=== PATIENT | male | born 1960 | race Caucasian/White ===

== ENCOUNTER 2017-05-17 17:21 | Emergency (ER) | payer OTHER ==
[2017-05-17] MEDS ORDERED: Hydromorphone 1 mg/ml Ampule IV ONE (17:33)
[2017-05-17] MEDS ORDERED: Adacel Vial IM ONE ×2 (17:33→17:46)
[2017-05-17] MEDS ORDERED: BENADRYL 50 MG/ML IV ONE (17:33)
[2017-05-17] MEDS ORDERED: BENADRYL 50 MG/ML ONE (17:45)
[2017-05-17] MEDS ORDERED: Hydromorphone 1 mg/ml Ampule ONE (17:45)
[2017-05-17] MEDS ORDERED: Sodium Chloride 0.9% 1000 ML 1,000 ML IV SCH (17:45)
[2017-05-17] MEDS ORDERED: Sodium Chloride 0.9% 1000 ML 1,000 ML ONE (17:46)
[2017-05-17 17:52] LABS: Mean Cell Volume 84.1 fl (78-100); Mean Corpuscular Hemoglobin 28.4 pg (26-32); Mean Platelet Volume 9.6 fl (6-9.5); Platelet Count 208 K/mm3 (150-450); Red Blood Count 4.97 M/mm3 (4.1-5.6); Red Cell Distribution Width 13.5 % (11.5-14.0); White Blood Count 8.9 K/mm3 (4.0-10.5)
--- NOTE | 2017-05-17 18:04 | ERPHSYRPT ---
- History of Present Illness Time Seen by Provider: 05/17/17 17:26 Source: patient Patient Subjective Stated Complaint: pt had horse fall over him while he was shoeing him. pt landed on left side, pt co pain to pelvic regin, pt stated he was able to get up and walk Triage Nursing Assessment: pt alert, states no loc. resp easy, chest clear, skin w/d pink, abd soft. pelis tender. states penis hurts but not trauma to penis. sips of water about 30 mins ago , eat about 0930 Physician History: CC: smashed by horse Hx: 56 y/o patient from [facility] here to shoe horses. He had a horse twist and fall. Kicked in back of head with no LOC. Some neck pain. No numbness. Pain radiates from low back to pelvis to his groin area. Not short of breath. No extremity pain. No N/V. Was able to stand but rather severe pain in the low back. Occurred: just prior to arrival Loss of Consciousness: no loss of consciousness Severity of Pain-Max: severe Severity of Pain-Current: severe Allergies/Adverse Reactions: codeine Allergy (Verified 05/17/17 17:39) Home Medications: No Reportable Medications [No Reported Medications] 05/17/17 [History] Hx Tetanus, Diphtheria Vaccination/Date Given: No Hx Influenza Vaccination/Date Given: No Hx Pneumococcal Vaccination/Date Given: No Immunizations Up to Date: Yes - Review of Systems Constitutional: No Symptoms Eyes: No Vision Changes Ears, Nose, & Throat: No Symptoms Respiratory: No Cough, No Dyspnea Cardiac: No Chest Pain Abdominal/Gastrointestinal: No Abdominal Pain, No Nausea, No Vomiting Musculoskeletal: Back Pain, Neck Pain, Joint Pain (pelvis and hips) Skin: No Rash Neurological: No Focal Weakness, No Headache, No Parasthesia All Other Systems: Reviewed and Negative - Past Medical History Pertinent Past Medical History: No Other Medical History: umbilical hernia - Past Surgical History Past Surgical History: No - Social History Smoking Status: Never smoker Exposure to second hand smoke: No Drug Use: none Patient Lives Alone: No Physical Exam - Nursing Vital Signs Nursing Vital Signs: Initial Vital Signs Temperature 97.2 F 05/17/17 17:36 Pulse Rate 72 05/17/17 17:36 Respiratory Rate 20 05/17/17 17:36 Blood Pressure 136/77 05/17/17 17:36 O2 Sat by Pulse Oximetry 99 05/17/17 17:36 Pain Scale Pain Intensity 4 - Eden Coma Score Best Eye Response (Eden): (4) open spontaneously Best Verbal Response (Eugenio): (5) oriented Best Motor Response (Eugenio): (6) obeys commands Eden Total: 15 - Physical Exam General Appearance: alert, other (uncomfortable appearing) Eye Exam: bilateral eye: PERRL, EOMI ENT Exam: airway nml Neck Exam: other (mild tenderness, c-collar placed on arrival) Respiratory/Chest Exam: normal breath sounds, No chest tenderness Cardiovascular Exam: regular rate/rhythm Gastrointestinal Exam: soft, No tenderness, No distention Genitalia Exam: normal genital exam Back Exam: normal inspection, vertebral tenderness (low back) Extremity Exam: normal inspection, other (no point tenderness of extremities) Neurologic Exam: alert, oriented x 3, cooperative, clay miller II-XII nml as tested, sensation nml, No motor deficits Skin Exam: warm, dry, No rash SpO2 Interpretation: normal SpO2: 99 Oxygen Delivery: Room Air Procedures - Limited Abd FAST Ultrasound Right Upper Quadrant Findings: No Free Fluid Left Upper Quadrant Findings: No Free Fluid Pelvis: no free fluid Progress: Transabdominal sonogram FAST exam per ERMD for trauma: No free fluid. No pericardial effusion. Good lung sliding bilateral. - Course Nursing assessment & vital signs reviewed: Yes - Radiology Exams pelvis X-ray Interpretation: Discussed w/ radiologist (no fracture per Dr Clarke) Ordered Tests: Active Orders 24 hr Category Date Time Status Ccu Nurse STAT Care 05/17/17 17:35 Active Cervical Collar Application STAT Care 05/17/17 17:33 Active Clean Catch Urine Specimen STAT Care 05/17/17 17:33 Active IV Insertion STAT Care 05/17/17 17:33 Active IV Insertion-2nd Peripheral STAT Care 05/17/17 17:33 Active NPO (ED) STAT Care 05/17/17 17:33 Active ABDOMEN AND PELVIS W CONTRAST [CT] Stat Exams 05/17/17 17:34 Taken CERVICAL SPINE WO CONTRAST [CT] Stat Exams 05/17/17 17:34 Taken CHEST 1 VIEW (PORTABLE) Stat Exams 05/17/17 17:36 Taken CHEST WITH CONTRAST [CT] Stat Exams 05/17/17 17:35 Taken HEAD WITHOUT CONTRAST [CT] Stat Exams 05/17/17 17:34 Taken PELVIS (1 OR 2 VIEWS) Stat Exams 05/17/17 17:36 Taken CBC W DIFF Stat Lab 05/17/17 17:47 Completed CK-Creatinine Phosphokinase Stat Lab 05/17/17 17:47 Completed CMP Stat Lab 05/17/17 17:47 Completed CULTURE,URINE Stat Lab 05/17/17 19:35 Received ETHYL ALCOHOL Stat Lab 05/17/17 17:47 Completed Manual Differential NC Stat Lab 05/17/17 17:47 Completed PROTIME WITH INR Stat Lab 05/17/17 17:47 Completed PTT Stat Lab 05/17/17 17:47 Completed UA W/ MICROSCOPIC Stat Lab 05/17/17 19:35 Completed Urine Triage Profile Stat Lab 05/17/17 19:30 Completed Medication Summary Generic Name Dose Route Start Last Admin Trade Name Freq PRN Reason Stop Dose Admin Sodium Chloride 1,000 mls @ 100 mls/hr 05/17/17 17:45 05/17/17 17:51 Sodium Chloride 0.9% 1000 Ml IV 06/16/17 17:44 100 mls/hr .Q10H CLAY Administration Discontinued Medications Generic Name Dose Route Start Last Admin Trade Name Freq PRN Reason Stop Dose Admin Diphenhydramine HCl 25 mg 05/17/17 17:33 05/17/17 17:50 Benadryl 50 Mg/Ml IV 05/17/17 17:34 25 mg STAT ONE Administration Diphenhydramine HCl Confirm 05/17/17 17:45 Benadryl 50 Mg/Ml Administered 05/17/17 17:46 Dose 50 mg .ROUTE .STK-MED ONE Diphtheria/Tetanus/Acell Pertussis 0.5 ml 05/17/17 17:33 05/17/17 17:51 Adacel Vial IM 05/17/17 17:34 0.5 ml .ONCE ONE Administration Diphtheria/Tetanus/Acell Pertussis Confirm 05/17/17 17:46 Adacel Vial Administered 05/17/17 17:47 Dose 0.5 ml IM .STK-MED ONE Hydromorphone HCl 1 mg 05/17/17 17:33 05/17/17 17:51 Hydromorphone 1 Mg/Ml Ampule IV 05/17/17 17:34 1 mg STAT ONE Administration Hydromorphone HCl Confirm 05/17/17 17:45 Hydromorphone 1 Mg/Ml Ampule Administered 05/17/17 17:46 Dose 1 mg .ROUTE .STK-MED ONE Lab/Rad Data: Laboratory Result Diagrams 05/17/17 17:47 05/17/17 17:47 Laboratory Results 05/17/17 05/17/17 05/17/17 Range/Units 19:35 19:30 17:47 WBC (4.0-10.5) K/mm3 RBC (4.1-5.6) M/mm3 Hgb (12.5-18.0) gm/dl Hct (42-50) % MCV (78-100) fl MCH (26-32) pg MCHC (32-36) g/dl RDW (11.5-14.0) % Plt Count (150-450) K/mm3 MPV (6-9.5) fl Segmented Neutrophils (36.-66.) % Lymphocytes (Manual) (24-44) % Monocytes (Manual) (0.0-12.0) % Differential Comment Platelet Estimate (NORMAL) INR (0.8-3.0) APTT (24.1-36.1) SECONDS Sodium (136-145) mEq/L Potassium (3.5-5.1) mEq/L Chloride (98-107) mEq/L Carbon Dioxide (21-32) mEq/L Anion Gap (5-15) MEQ/L BUN (9-20) mg/dL Creatinine (0.55-1.30) mg/dl Estimated GFR ML/MIN Glucose (70-110) MG/DL Calcium (8.5-10.1) mg/dL Total Bilirubin (0.2-1.0) mg/dL AST (15-37) U/L ALT (12-78) U/L Alkaline Phosphatase (46-116) U/L Creatine Kinase 216 (39-308) U/L Serum Total Protein (6.4-8.2) gm/dL Albumin (3.4-5.0) g/dL Ur Collection Type VOID Urine Color YELLOW (YELLOW) Urine Appearance CLEAR (CLEAR) Urine pH 7.0 (5-6) Ur Specific [place] 1.005 (1.005-1.025) Urine Protein 30 (Negative) Urine Ketones SMALL (NEGATIVE) Urine Blood TRACE NON-HEM (0-5) Fercho/ul Urine Nitrite NEGATIVE (NEGATIVE) Urine Bilirubin NEGATIVE (NEGATIVE) Urine Urobilinogen NORMAL (0-1) mg/dL Ur Leukocyte Esterase NEGATIVE (NEGATIVE) Urine Microscopic RBC 0-2 (0-2) /HPF Urine Microscopic WBC 2-5 (0-5) /HPF Ur Epithelial Cells FEW (FEW) /HPF Urine Bacteria MODERATE (NEGATIVE) /HPF Urine Mucus MODERATE (NEGATIVE) /HPF Urine Culture Reflexed YES (NO) Urine Glucose NEGATIVE (NEGATIVE) mg/dL Urine Opiates Level NEG. (NEGATIVE) Ur Methadone NEG. (NEGATIVE) Urine Barbiturates NEG. (NEGATIVE) Ur Phencyclidine (PCP) NEG. (NEGATIVE) Urine Amphetamine NEG. (NEGATIVE) U Benzodiazepine Level NEG. (NEGATIVE) Urine Cocaine NEG. (NEGATIVE) Urine Marijuana (THC) NEG. (NEGATIVE) Ethyl Alcohol (0.00-0.01) % Specimen Received 05/17/17 193 ABO Group Rh Factor Antibody Screen (NEGATIVE) 05/17/17 05/17/17 05/17/17 Range/Units 17:47 17:47 17:47 WBC (4.0-10.5) K/mm3 RBC (4.1-5.6) M/mm3 Hgb (12.5-18.0) gm/dl Hct (42-50) % MCV (78-100) fl MCH (26-32) pg MCHC (32-36) g/dl RDW (11.5-14.0) % Plt Count (150-450) K/mm3 MPV (6-9.5) fl Segmented Neutrophils (36.-66.) % Lymphocytes (Manual) (24-44) % Monocytes (Manual) (0.0-12.0) % Differential Comment Platelet Estimate (NORMAL) INR 0.98 (0.8-3.0) APTT 25.4 (24.1-36.1) SECONDS Sodium 138 (136-145) mEq/L Potassium 3.3 L (3.5-5.1) mEq/L Chloride 102 (98-107) mEq/L Carbon Dioxide 26.6 (21-32) mEq/L Anion Gap 12.6 (5-15) MEQ/L BUN 16 (9-20) mg/dL Creatinine 1.24 (0.55-1.30) mg/dl Estimated GFR > 60 ML/MIN Glucose 87 (70-110) MG/DL Calcium 9.1 (8.5-10.1) mg/dL Total Bilirubin 0.40 (0.2-1.0) mg/dL AST 29 (15-37) U/L ALT 40 (12-78) U/L Alkaline Phosphatase 70 (46-116) U/L Creatine Kinase (39-308) U/L Serum Total Protein 7.2 (6.4-8.2) gm/dL Albumin 4.3 (3.4-5.0) g/dL Ur Collection Type Urine Color (YELLOW) Urine Appearance (CLEAR) Urine pH (5-6) Ur Specific [place] (1.005-1.025) Urine Protein (Negative) Urine Ketones (NEGATIVE) Urine Blood (0-5) Fercho/ul Urine Nitrite (NEGATIVE) Urine Bilirubin (NEGATIVE) Urine Urobilinogen (0-1) mg/dL Ur Leukocyte Esterase (NEGATIVE) Urine Microscopic RBC (0-2) /HPF Urine Microscopic WBC (0-5) /HPF Ur Epithelial Cells (FEW) /HPF Urine Bacteria (NEGATIVE) /HPF Urine Mucus (NEGATIVE) /HPF Urine Culture Reflexed (NO) Urine Glucose (NEGATIVE) mg/dL Urine Opiates Level (NEGATIVE) Ur Methadone (NEGATIVE) Urine Barbiturates (NEGATIVE) Ur Phencyclidine (PCP) (NEGATIVE) Urine Amphetamine (NEGATIVE) U Benzodiazepine Level (NEGATIVE) Urine Cocaine (NEGATIVE) Urine Marijuana (THC) (NEGATIVE) Ethyl Alcohol < 0.010 (0.00-0.01) % Specimen Received ABO Group A Rh Factor POSITIVE Antibody Screen NEGATIVE (NEGATIVE) 05/17/17 Range/Units 17:47 WBC 8.9 (4.0-10.5) K/mm3 RBC 4.97 (4.1-5.6) M/mm3 Hgb 14.1 (12.5-18.0) gm/dl Hct 41.8 L (42-50) % MCV 84.1 (78-100) fl MCH 28.4 (26-32) pg MCHC 33.7 (32-36) g/dl RDW 13.5 (11.5-14.0) % Plt Count 208 (150-450) K/mm3 MPV 9.6 H (6-9.5) fl Segmented Neutrophils 69 H (36.-66.) % Lymphocytes (Manual) 27 (24-44) % Monocytes (Manual) 4 (0.0-12.0) % Differential Comment NORMAL Platelet Estimate NORMAL (NORMAL) INR (0.8-3.0) APTT (24.1-36.1) SECONDS Sodium (136-145) mEq/L Potassium (3.5-5.1) mEq/L Chloride (98-107) mEq/L Carbon Dioxide (21-32) mEq/L Anion Gap (5-15) MEQ/L BUN (9-20) mg/dL Creatinine (0.55-1.30) mg/dl Estimated GFR ML/MIN Glucose (70-110) MG/DL Calcium (8.5-10.1) mg/dL Total Bilirubin (0.2-1.0) mg/dL AST (15-37) U/L ALT (12-78) U/L Alkaline Phosphatase (46-116) U/L Creatine Kinase (39-308) U/L Serum Total Protein (6.4-8.2) gm/dL Albumin (3.4-5.0) g/dL Ur Collection Type Urine Color (YELLOW) Urine Appearance (CLEAR) Urine pH (5-6) Ur Specific [place] (1.005-1.025) Urine Protein (Negative) Urine Ketones (NEGATIVE) Urine Blood (0-5) Fercho/ul Urine Nitrite (NEGATIVE) Urine Bilirubin (NEGATIVE) Urine Urobilinogen (0-1) mg/dL Ur Leukocyte Esterase (NEGATIVE) Urine Microscopic RBC (0-2) /HPF Urine Microscopic WBC (0-5) /HPF Ur Epithelial Cells (FEW) /HPF Urine Bacteria (NEGATIVE) /HPF Urine Mucus (NEGATIVE) /HPF Urine Culture Reflexed (NO) Urine Glucose (NEGATIVE) mg/dL Urine Opiates Level (NEGATIVE) Ur Methadone (NEGATIVE) Urine Barbiturates (NEGATIVE) Ur Phencyclidine (PCP) (NEGATIVE) Urine Amphetamine (NEGATIVE) U Benzodiazepine Level (NEGATIVE) Urine Cocaine (NEGATIVE) Urine Marijuana (THC) (NEGATIVE) Ethyl Alcohol (0.00-0.01) % Specimen Received ABO Group Rh Factor Antibody Screen (NEGATIVE) - Progress Progress Note: 05/17/17 18:05 Vitals ok. He is very uncomfortable. Pivoted to bed on arrival and placed supine. Pelvis xray neg so will get CT scans. 05/17/17 20:42 CT head: luis 8:00 PM 05/17/2017: No comps. Limited exam due to motion artifact thru midbrain. O/W no gross acute findings. CT cervical: luis 8:03 PM 05/17/2017: No comps. C1-C2 & C5-C6 degenerative changes. O/W negative CT C spine. CTchest: luis 8:07 PM 05/17/2017: No comps. B/L dependent ATX, scattered calcified granulomas, & small HH. Negative fx. Remaining CT chest negative. CT abd/pelvis: luis 8:12 PM 05/17/2017: No comps. Fatty liver, calcified splenic granulomas, small fatty umbilical hernia, & mild diffuse fecal stasis. 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 Negative fx. Remaining CT abd/pel negative. 05/17/17 21:22 Vitals stable. He is shaky and cold with chills. He ambulated in the room but had left posterior pelvic pain and right inguinal pain. Rectal exam shows normal tone. No specific lower spine tenderness. He discussed situation with and became anxious and broke out in a sweat. Advised he consider admission for observation. Spoke to collection team lead DR Monroy who advised pt needs trauma service. Called [facility] one call and spoke to Dr Vang who accepts to [facility]. Counseled pt/family regarding: lab results, diagnosis, need for follow-up, rad results - Departure Time of Disposition: 21:24 Departure Disposition: Transfer ([facility]) Clinical Impression: Crushing injury of multiple sites of trunk, Head contusion, Cervical sprain Condition: Fair Critical Care Time: No
[2017-05-17 18:13] LABS: ALBUMIN 4.3 g/dL (3.4-5.0); ALKALINE PHOSPHATASE 70 U/L (46-116); ANION GAP 12.6 MEQ/L (5-15); BLOOD UREA NITROGEN 16 mg/dL (9-20); CHLORIDE 102 mEq/L (98-107); Carbon Dioxide 26.6 mEq/L (21-32); ETHYL ALCOHOL < 0.010 % (0.00-0.01); Glucose 87 MG/DL (70-110); Potassium 3.3 mEq/L (3.5-5.1); SGOT/AST 29 U/L (15-37); SGPT/ALT 40 U/L (12-78); SODIUM 138 mEq/L (136-145); Total Protein 7.2 gm/dL (6.4-8.2)
[2017-05-17 18:21] LABS: INR 0.98 (0.8-3.0); PROTIME 10.9 SECONDS (8.83-12.87)
[2017-05-17 18:23] LABS: PTT 25.4 SECONDS (24.1-36.1)
[2017-05-17 18:41] LABS: Platelet Estimate NORMAL (NORMAL); Total Cells Counted 100
[2017-05-17 19:56] LABS: Bilirubin NEGATIVE (NEGATIVE); Blood TRACE NON-HEM Ery/ul (0-5); COMPLETE URINE MICROSCOPIC? YES; Collection Type VOID; Glucose NEGATIVE (NEGATIVE); Leukocyte Esterase NEGATIVE (NEGATIVE)
[2017-05-17 19:57] LABS: Bacteria MODERATE /HPF (NEGATIVE); Epithelial Cells FEW /HPF (FEW); Mucus MODERATE /HPF (NEGATIVE)
[2017-05-17 19:58] LABS: ADD URINE CULTURE? YES (NO)
[2017-05-17 22:03] VITALS: BP 116/69; PULSE 68; O2SAT 96
--- NOTE | 2017-05-18 08:43 | XRAY ---
Indication: Pelvic pain following horse injury. Comparison: None Single AP pelvis demonstrates tiny right superior acetabular bone island. No other bony, articular, or soft tissue abnormalities.
--- NOTE | 2017-05-18 08:45 | XRAY ---
Indication: Pain following horse injury. Multiple contiguous axial images obtained through the head without contrast. Comparison: None Images through the midbrain moderately degraded by motion artifact. No acute intracranial hemorrhage, abnormal extra-axial fluid collection, or mass effect. Fourth ventricle is midline without hydrocephalus. Ortiz-white matter differentiation preserved. Bony calvarium intact. Visualized paranasal sinuses and mastoid air cells are clear. Impression: Motion artifact. No acute intracranial abnormalities. CT DI 48.76
--- NOTE | 2017-05-18 08:45 | XRAY ---
Indication: Pain following horse injury. Comparison: None Single AP chest demonstrates normal heart, lungs, and bony thorax.
--- NOTE | 2017-05-18 08:49 | XRAY ---
Indication: Pain following horse injury. Multiple contiguous axial images obtained through the cervical spine. Sagittal and coronal reformatted images obtained. Comparison: None Axial images negative for acute fracture, suspicious bony lesions, or spinal canal stenosis. Mild atlantoaxial degenerative changes and minimal C5-C6 degenerative spurring. Sagittal and coronal reformatted images demonstrates normal alignment. Minimal C5-C6 degenerative disc space narrowing. No acute compression fracture, subluxation, or jumped facets. Normal-appearing craniocervical junction. Visualized noncontrasted soft tissues unremarkable. CT head and CT chest reported separately. Impression: 1. Negative acute fracture/subluxation. 2. Incidental degenerative changes. CT DI 113.80
--- NOTE | 2017-05-18 08:53 | XRAY ---
Indication: Pain following horse injury. Multiple contiguous axial images obtained through the chest without contrast as ordered. Comparison: None Lungs demonstrates moderate bilateral dependent atelectasis. No suspicious pulmonary mass, infiltrate, effusion, or pneumothorax. Heart is not enlarged. Aorta is normal in course and caliber. Right hilar calcified nodes. No pathologic mediastinal lymphadenopathy. Small hiatal hernia. Bony thorax intact. CT abdomen reported separately. Impression: Right hilar granulomatous calcified nodes and bilateral dependent atelectasis. Remaining CT chest without contrast exam is negative. CT DI 22.55
--- NOTE | 2017-05-18 08:59 | XRAY ---
Indication: Pain following horse injury. Multiple contiguous axial images obtained through the abdomen and pelvis using 80 cc Isovue 370 contrast only. Comparison: None CT chest reported separately. Noncontrasted stomach and bowel loops appear nonobstructed. Mild diffuse scattered colonic fecal debris. Normal appendix. No free fluid/air. Mild diffuse fatty liver. Scattered tiny calcified splenic granulomas. Remaining liver, gallbladder, pancreas, spleen, adrenal glands, kidneys, ureters, bladder, and aorta appear unremarkable. No pathologic retroperitoneal lymphadenopathy. Osseous structures intact with mild degenerative changes throughout the spine. Tiny right acetabular and left femur head bone islands. Bilateral L5 spondylolysis without spondylolisthesis. Small fatty umbilical hernia. Impression: 1. No acute intra-abdominal/pelvic abnormalities or fracture. 2. Incidental fatty liver, fecal stasis, fatty umbilical hernia, and L5 spondylolysis without spondylolisthesis. CT DI 22.55
== END 2017-05-17 22:04 | disposition short-term general hospital (02) ==
LOC: ED 17:21
DX: S38.1XXA Crushing injury of abdomen, lower back, and pelvis, initial encounter (principal); S13.9XXA Sprain of joints and ligaments of unspecified parts of neck, initial encounter; S00.93XA Contusion of unspecified part of head, initial encounter; R10.2 Pelvic and perineal pain; M54.2 Cervicalgia; M54.5 Low back pain; W55.12XA Struck by horse, initial encounter
CPT/HCPCS: 36000; 36415; 70450; 71010; 71260; 72125; 72170; 74177; 80053; 80307; 81000; 82550; 85025; 85610; 85730; 86850; 86900; 86901; 87086; 90471; 90715; 93041; 96360; 96361; 96372; 96374; 96375; 99285; G0481; J1170; J1200